=== PATIENT | female | born 1940 ===

== ENCOUNTER 2020-05-09 05:50 | Day surgery (SDC) | payer OTHER ==
[~2020-05-09 05:50] MED LIST: AMLODIPI PO; ATACAND32 MG PO; LEVOTHY PO; TOPROL XL100 M1 PO; [UNRECOGNIZED DRUG - OTHER] PO
[2020-05-09] MEDS ORDERED: PERCOCET 5-3251 EACH PO (08:17)
[2020-05-09] MEDS ORDERED: RECTICARE30 GM TOP (08:18)
== END 2020-05-09 14:10 | disposition home or self-care (01) ==
LOC: CIR.AMB 05:50
PROVIDERS: ATTEND Surgery
DX: D12.8 Benign neoplasm of rectum (principal); Z20.828 Contact with and (suspected) exposure to other viral communicable diseases